=== PATIENT | female | born 1955 | race Caucasian/White ===

== ENCOUNTER 2020-10-27 07:16 | Day surgery (SDC) | payer MEDICARE, OTHER ==
[~2020-10-27] VITALS: Ht 152.4 cm; Wt 86.6 kg
[~2020-10-27 07:16] MED LIST: ADLT ASA LOW81 MG PO; ADVAIR DISK1 IN; ATENOLOL25 MG OR; ATORVASTATIN CA80 MG PO; CALCIUM600 MG PO; CELEXA20 MG PO; CRESTOR10 MG OR; CYMBALTA60 MG OR; DARVOCET N-100100 - OR; DICLOFENAC SODIUM1 % TOP; ELAVIL25 M1 PO; ENBREL50 MG/ML SC; EQL BIOTIN5000 MCG PO; FISH OIL1000 MG PO; FOLIC ACID1 MG PO; IRON325 M1 PO; LISINOPRIL5 MG PO; LORATADINE10 M1 PO; LYRICA25 MG PO; MECLIZINE25 MG PO; MULTI VIT PO; NEURONTIN300 MG OR; NIFEDIPINE10 M1 PO; OMEPRAZOLE10 MG PO; PLAQUENIL200 MG OR; PROCARDIA10 MG OR; PROMETHAZINE25 MG OR; PROMETHAZINE25 MG RE; SULFASALAZIN500 M1 PO; SYSTANE OU; VENTOLIN HFA IN; VESICARE5 MG OR; VITAMIN B-12500 MCG PO; VITAMIN C500 M4 PO; VITAMIN D31000 UNI1 PO
[2020-10-27 09:53] VITALS: BP 140/62
== END 2020-10-27 09:40 | disposition home or self-care (01) ==
LOC: ENDO 07:16
PROVIDERS: ATTEND Surgery
PROC: 0DJD8ZZ Inspection of Lower Intestinal Tract, Via Natural or Artificial Opening Endoscopic (ICD-10-PCS; principal; 2020-10-27)
DX: Z12.11 Encounter for screening for malignant neoplasm of colon (principal)